=== PATIENT | female | born 1975 | race Caucasian/White ===

== ENCOUNTER 2022-07-28 15:56 | Emergency (ER) | payer BC ==
[~2022-07-28] VITALS: Ht 167.6 cm; Wt 56.7 kg
[2022-07-28] MEDS ORDERED: ONDANSETRON HCL/PF 4 MG/2 ML VIAL ONE (17:22)
[2022-07-28] MEDS ORDERED: ONDANSETRON HCL/PF 4 MG/2 ML VIAL IVP ONE (17:30)
[2022-07-28] MEDS ORDERED: IV NS 0.9% 1,000 ML BAG IV ONE (17:30)
[2022-07-28 17:50] LABS: BASOPHILS % (AUTO) 0.2 % (0.0-2.0); EOSINOPHILS % (AUTO) 0.2 % (0.0-6.0); HEMATOCRIT 37 % (33-45); HEMOGLOBIN 12.3 g/dL (11.5-14.8); LYMPHOCYTES % (AUTO) 17.8 % (20.0-44.0); MEAN CORPUSCULAR HGB CONC 33 g/dl (31.0-36.0); MEAN CORPUSCULAR VOLUME 90 fL (82-100); MONOCYTES # (AUTO) 0.5 K/uL (0.1-1.30); MONOCYTES % (AUTO) 4.4 % (2.0-12.0); NEUTROPHILS # (AUTO) 8.9 K/uL (1.8-8.9); NEUTROPHILS % (AUTO) 77.4 % (43.0-81.0); PLATELET COUNT (AUTO) 205 K/uL (150-450); RED BLOOD CELL COUNT(AUTO) 4.14 MIL/uL (4.0-5.2); WHITE BLOOD COUNT (AUTO) 11.5 K/uL (4.3-11.0)
[2022-07-28 18:23] LABS: CALCIUM, SERUM 9.3 mg/dL (8.5-10.1); CREATININE 0.9 mg/dL (0.6-1.3); POTASSIUM 3.7 mmol/L (3.5-5.1)
--- NOTE | 2022-07-28 18:31 | NUR ---
URINE COLLECTED AND SENT TO LAB
[2022-07-28 18:49] LABS: ALBUMIN 3.8 g/dL (3.4-5.0)
[2022-07-28 19:16] LABS: BILIRUBIN,DIRECT 0.1 mg/dL (0.0-0.2); BILIRUBIN,TOTAL 0.2 mg/dL (0.2-1.0); TOTAL PROTEIN, SERUM 7.1 g/dL (6.4-8.2)
[2022-07-28 19:53] LABS: BILIRUBIN,URINE NEGATIVE (NEGATIVE); COLOR,URINE YELLOW (YELLOW); LEUKOCYTE ESTERASE ,URINE NEGATIVE (NEGATIVE); NITRITE, URINE NEGATIVE (NEGATIVE); PH,URINE 8.5 (5.0-8.0); PROTEIN,URINE NEGATIVE (NEGATIVE); UGLUCOSE NEGATIVE (NEGATIVE); UROBILINOGEN,URINE 0.2 EU/dL (0.2)
[2022-07-28 20:04] LABS: BACTERIA,URINE RARE /HPF (None Seen); RBC,URINE 0-2 /HPF (0-2); WBC,URINE 0-2 /HPF (0-3)
[2022-07-28] MEDS ORDERED: ONDA4TAB5 PO (20:26)
--- NOTE | 2022-07-28 20:36 | NUR ---
IV removed. Catheter intact and site benign. Pressure and 4x4 applied to site. No bleeding noted.
--- NOTE | 2022-07-28 20:36 | NUR ---
Patient discharged to home in stable condition. Written and verbal after care instructions given. Patient verbalizes understanding of instruction.
[2022-07-28 23:34] VITALS: BP 130/85
== END 2022-07-28 20:40 | disposition home or self-care (01) ==
LOC: ER 17:28
DX: R11.2 Nausea with vomiting, unspecified (principal); R42 Dizziness and giddiness; E86.0 Dehydration; Z79.899 Other long term (current) drug therapy
CPT/HCPCS: 99283; 96374; 96361; 85025; 80048; 80076; 84703; 81001; 36415; J2405; J7030